=== PATIENT | male | born 1980 | race Caucasian/White ===

== ENCOUNTER 2018-01-14 08:33 | Emergency (ER) | payer MEDICAID ==
[~2018-01-14] VITALS: Ht 172.7 cm; Wt 74.8 kg
[2018-01-14 08:42] VITALS: BP_SYST 125
[2018-01-14] MEDS ORDERED: BACITRACIN 1 GM OINT TP ONE (09:30)
[2018-01-14 09:38] VITALS: BP_SYST 125
== END 2018-01-14 09:38 | disposition home or self-care (01) ==
LOC: SED 08:33
DX: S00.521A Blister (nonthermal) of lip, initial encounter (principal); Z90.49 Acquired absence of other specified parts of digestive tract; Z86.59 Personal history of other mental and behavioral disorders; X58.XXXA Exposure to other specified factors, initial encounter; Y93.89 Activity, other specified; Y92.89 Other specified places as the place of occurrence of the external cause; Y99.8 Other external cause status
CPT/HCPCS: 99283